=== PATIENT | female | born 1955 | race African-American/Black ===

== ENCOUNTER 2019-04-07 19:56 | Inpatient (IN) | payer OTHER ==
[~2019-04-07] VITALS: Ht 175.3 cm; Wt 97.1 kg
[2019-04-07] MEDS ORDERED: KETOROLAC 60MG/2ML VIAL IM STA (22:21)
[2019-04-07] MEDS ORDERED: ASPIRIN 81MG TABLET PO ONE (22:30)
[2019-04-08] MEDS ORDERED: MORPHINE SULFATE 4 MG/ML CPJ (NOT FOR IM USE) IV NR
[2019-04-08 00:13] LABS: BASOPHILS % 1.2 % (0.0-2.0); EOSINOPHILS % 1.2 % (0.0-5.0); HEMATOCRIT. 35.7 % (36.0-48.0); HEMOGLOBIN. 12.2 g/dL (12.0-16.0); MEAN CORPUSCULAR HEMOGLOBIN 32.4 pg (28.0-32.0); MEAN CORPUSCULAR VOLUME 95.1 fL (81.0-99.0); MEAN PLATELET VOLUME 9.2 fl (7.4-10.4); MONOCYTES % 7.4 % (2.0-8.0); NEUTROPHILS % 52.2 % (40.0-76.0); PLATELET 163 x1000/uL (130-400); RED BLOOD CELL COUNT 3.76 mill/uL (4.2-5.4); RED CELL DISTRIBUTION WIDTH 13.6 % (11.6-14.6)
[2019-04-08 00:18] LABS: CHLORIDE 102 mEq/L (98-107)
[2019-04-08 00:21] LABS: INR 0.9; PARTIAL THROMBOPLASTIN TIME 23.2 sec (23.4-31.0); PROTHROMBIN TIME 9.7 sec (9.6-11.0)
[2019-04-08 00:29] LABS: CREATINE KINASE 70 IU/L (26-192)
[2019-04-08] MEDS ORDERED: HEPARIN 5000 UNITS/ML VIAL IV SCH (01:15)
[2019-04-08] MEDS ORDERED: HEPARIN 25,000 UNITS PREMIX 500 ML IV PRN (01:15)
[2019-04-08] MEDS ORDERED: IOHEXOL-350 100 ML BOTTLE ONE (02:32)
[2019-04-08 03:23] VITALS: BP 126/71
[2019-04-08] MEDS ORDERED: METF-815 PO (03:31)
[2019-04-08] MEDS ORDERED: ATOR20TA PO (03:35)
[2019-04-08 04:00] VITALS: BP 133/77
[2019-04-08] MEDS ORDERED: ONDANSETRON HCL 4MG/2ML INJ IV PRN (04:30)
[2019-04-08] MEDS ORDERED: CLONIDINE 0.1MG TABLET PO PRN (04:30)
[2019-04-08] MEDS ORDERED: HEPARIN 25,000 UNITS PREMIX 500 ML IV SCH ×2 (04:30→05:15)
[2019-04-08] MEDS ORDERED: DEXTROSE 50% WATER 50ML SYRINGE IV PRN (04:30)
[2019-04-08] MEDS ORDERED: HEPARIN BOLUS PRN aPTT 37-44 IV (05:15)
[2019-04-08] MEDS ORDERED: HEPARIN BOLUS PRN aPTT <36 IV (05:15)
[2019-04-08] MEDS ORDERED: HEPARIN 80 UNITS/KG BOLUS IV SCH (05:15)
[2019-04-08] MEDS: BLOOD SUGAR DIAGNOSTIC STRIP TEST SCH ×4 (05:22→21:00)
[2019-04-08] MEDS: DEXT 5%/0.45% NACL KCL 20MEQ/L 1,000 ML IV SCH (05:32)
[2019-04-08 08:00] VITALS: BP 122/62
[2019-04-08] MEDS: INSULIN LISPRO 100 UNITS/ML SUBCUT SCH ×3 (08:10→21:10)
[2019-04-08 09:51] LABS: HEMATOCRIT 35.2 % (36.0-48.0); HEMOGLOBIN 11.9 g/dL (12.0-16.0); MEAN CORPUSCULAR HEMOGLOBIN 32.3 pg (28.0-32.0); MEAN CORPUSCULAR VOLUME 95.4 fL (81.0-99.0); PLATELET 164 x1000/uL (130-400); RED BLOOD CELL COUNT 3.69 mill/uL (4.2-5.4); RED CELL DISTRIBUTION WIDTH 13.3 % (11.6-14.6)
[2019-04-08 10:08] LABS: CHLORIDE 105 mEq/L (98-107)
[2019-04-08] MEDS ORDERED: KCL 20MEQ/100ML PREMIX 100 ML IV NR (12:00)
[2019-04-08 12:51] VITALS: BP 110/63
[2019-04-08 16:00] VITALS: BP 114/60
[2019-04-08] MEDS ORDERED: ENOXAPARIN 30MG/0.3ML SYR SUBCUT SCH (18:00)
[2019-04-08] MEDS: ASPIRIN 81MG EC TABLET PO SCH (18:02)
[2019-04-08] MEDS: ENOXAPARIN 100MG/ML SYR SUBCUT SCH ×2 (18:03→20:55)
[2019-04-08 20:00] VITALS: BP 111/58
[2019-04-09] VITALS: BP 119/61
[2019-04-09 04:00] VITALS: BP_SYST 115; BP_SYST 127; BP_DIAS 64; BP_DIAS 65
[2019-04-09] MEDS: BLOOD SUGAR DIAGNOSTIC STRIP TEST SCH ×4 (07:40→20:45)
[2019-04-09 08:00] VITALS: BP 109/74
[2019-04-09] MEDS: ENOXAPARIN 100MG/ML SYR SUBCUT SCH ×2 (09:05→20:44)
[2019-04-09] MEDS: ASPIRIN 81MG EC TABLET PO SCH (09:05)
[2019-04-09] MEDS: INSULIN LISPRO 100 UNITS/ML SUBCUT SCH ×4 (09:07→20:58)
[2019-04-09] MEDS: DEXT 5%/0.45% NACL KCL 20MEQ/L 1,000 ML IV SCH ×2 (09:41→23:46)
[2019-04-09 12:00] VITALS: BP 117/69
[2019-04-09 16:00] VITALS: BP 108/51
[2019-04-09 16:54] LABS: BASOPHILS % 0.8 % (0.0-2.0); EOSINOPHILS % 1.4 % (0.0-5.0); HEMATOCRIT. 35.4 % (36.0-48.0); LYMPHOCYTES % 39.2 % (20.0-50.0); MEAN CORPUSCULAR HEMOGLOBIN 32.6 pg (28.0-32.0); MEAN CORPUSCULAR VOLUME 95.8 fL (81.0-99.0); MEAN PLATELET VOLUME 9.7 fl (7.4-10.4); MONOCYTES % 8.9 % (2.0-8.0); NEUTROPHILS % 49.7 % (40.0-76.0); PLATELET 171 x1000/uL (130-400); RED CELL DISTRIBUTION WIDTH 13.9 % (11.6-14.6)
[2019-04-09 16:56] LABS: CHLORIDE 112 mEq/L (98-107)
[2019-04-09 17:05] LABS: CREATINE KINASE 47 IU/L (26-192)
[2019-04-09 17:07] LABS: CREATINE KINASE MB FRACTION < 1.0 ng/mL (0.5-3.6)
[2019-04-09 20:00] VITALS: BP 120/65
[2019-04-10] VITALS: BP 117/56
[2019-04-10 04:00] VITALS: BP 104/57
[2019-04-10] MEDS: BLOOD SUGAR DIAGNOSTIC STRIP TEST SCH ×4 (07:40→21:00)
[2019-04-10 08:00] VITALS: BP 121/59
[2019-04-10 08:21] LABS: BASOPHILS % 0.9 % (0.0-2.0); EOSINOPHILS % 1.5 % (0.0-5.0); HEMATOCRIT. 34.9 % (36.0-48.0); HEMOGLOBIN. 11.6 g/dL (12.0-16.0); LYMPHOCYTES % 43.2 % (20.0-50.0); MEAN CORPUSCULAR HEMOGLOBIN 32.1 pg (28.0-32.0); MEAN CORPUSCULAR VOLUME 96.9 fL (81.0-99.0); MEAN PLATELET VOLUME 10.3 fl (7.4-10.4); MONOCYTES % 8.1 % (2.0-8.0); NEUTROPHILS % 46.3 % (40.0-76.0); PLATELET 170 x1000/uL (130-400); RED CELL DISTRIBUTION WIDTH 13.4 % (11.6-14.6)
[2019-04-10 08:29] LABS: CHLORIDE 113 mEq/L (98-107)
[2019-04-10] MEDS: ASPIRIN 81MG EC TABLET PO SCH (08:51)
[2019-04-10] MEDS: ENOXAPARIN 100MG/ML SYR SUBCUT SCH ×2 (08:52→21:00)
[2019-04-10] MEDS: INSULIN LISPRO 100 UNITS/ML SUBCUT SCH ×4 (08:57→21:00)
[2019-04-10 12:00] VITALS: BP 118/60
[2019-04-10] MEDS ORDERED: MAGNESIUM 1 G PREMIX 100 ML IV NR (13:00)
[2019-04-10] MEDS: DEXT 5%/0.45% NACL KCL 20MEQ/L 1,000 ML IV SCH (13:55)
[2019-04-10 16:00] VITALS: BP 116/61
[2019-04-10 20:00] VITALS: BP_SYST 118; BP_DIAS 65; BP_DIAS 67
[2019-04-11] VITALS (12 sets, daily range): BP systolic 126–155; BP diastolic 61–86
[2019-04-11] MEDS: DEXT 5%/0.45% NACL KCL 20MEQ/L 1,000 ML IV SCH (01:17)
[2019-04-11 07:14] LABS: EOSINOPHILS % 1.6 % (0.0-5.0); HEMATOCRIT. 34.2 % (36.0-48.0); HEMOGLOBIN. 11.3 g/dL (12.0-16.0); MEAN CORPUSCULAR HEMOGLOBIN 32.4 pg (28.0-32.0); MEAN CORPUSCULAR VOLUME 97.6 fL (81.0-99.0); MEAN PLATELET VOLUME 9.6 fl (7.4-10.4); MONOCYTES % 8.2 % (2.0-8.0); NEUTROPHILS % 51.2 % (40.0-76.0); PLATELET 158 x1000/uL (130-400); RED CELL DISTRIBUTION WIDTH 13.8 % (11.6-14.6)
[2019-04-11 07:26] LABS: CHLORIDE 113 mEq/L (98-107)
[2019-04-11] MEDS: BLOOD SUGAR DIAGNOSTIC STRIP TEST SCH ×4 (07:40→20:51)
[2019-04-11] MEDS: ASPIRIN 81MG EC TABLET PO SCH (08:51)
[2019-04-11] MEDS: INSULIN LISPRO 100 UNITS/ML SUBCUT SCH ×4 (08:54→20:51)
[2019-04-11] MEDS ORDERED: FENTANYL CITRATE/PF 50MCG/ML 2ML VIAL ONE (12:35)
[2019-04-11] MEDS ORDERED: MIDAZOLAM HCL 2 MG/2 ML VIAL ONE ×2 (12:35→13:55)
[2019-04-11] MEDS ORDERED: ASPIRIN/SOD BICARB/CITRIC ACID 324MG TAB EFF ONE (12:36)
[2019-04-11] MEDS ORDERED: LIDOCAINE HCL 1% 20ML VIAL (Pyxis) INJ ONE (12:36)
[2019-04-11] MEDS ORDERED: IODIXANOL 320MG/ML 100 ML BOTTLE IV ONE (12:36)
[2019-04-11] MEDS ORDERED: IOHEXOL-300 100 ML BOTTLE ONE (13:56)
[2019-04-11] MEDS ORDERED: CLOPIDOGREL 75MG TABLET ONE (14:49)
[2019-04-11] MEDS: ASPIRIN 325MG TABLET PO SCH (15:00)
[2019-04-11] MEDS ORDERED: MORPHINE SULFATE 4 MG/ML CPJ (NOT FOR IM USE) IV PRN (15:00)
[2019-04-11] MEDS ORDERED: HEPARIN SODIUM 1,000 UNIT/1ML VIAL IV ONE (15:00)
[2019-04-11] MEDS ORDERED: ATROPINE SULFATE 1MG/10ML SYR IV PRN (15:00)
[2019-04-11] MEDS ORDERED: CLOPIDOGREL 75MG TABLET PO SCH (15:00)
[2019-04-11] MEDS ORDERED: SODIUM CHLORIDE 0.45% 1,000 ML IV ONE (15:00)
[2019-04-11] MEDS ORDERED: ACETAMINOPHEN 325MG TABLET PO PRN (15:00)
[2019-04-11] MEDS ORDERED: ONDANSETRON HCL 4MG/2ML INJ IV PRN (15:00)
[2019-04-11] MEDS: MORPHINE SULFATE 2 MG/ML CPJ (NOT FOR IM USE) IV PRN (21:18)
[2019-04-12] VITALS (10 sets, daily range): BP systolic 110–141; BP diastolic 57–90
[2019-04-12] MEDS: MORPHINE SULFATE 2 MG/ML CPJ (NOT FOR IM USE) IV PRN (02:13)
[2019-04-12] MEDS: BLOOD SUGAR DIAGNOSTIC STRIP TEST SCH ×3 (05:54→16:50)
[2019-04-12 07:10] LABS: BASOPHILS % 0.6 % (0.0-2.0); HEMATOCRIT. 35.1 % (36.0-48.0); HEMOGLOBIN. 11.9 g/dL (12.0-16.0); LYMPHOCYTES % 12.5 % (20.0-50.0); MEAN CORPUSCULAR HEMOGLOBIN 32.5 pg (28.0-32.0); MEAN CORPUSCULAR VOLUME 96.2 fL (81.0-99.0); MEAN PLATELET VOLUME 9.5 fl (7.4-10.4); MONOCYTES % 6.7 % (2.0-8.0); NEUTROPHILS % 79.2 % (40.0-76.0); PLATELET 178 x1000/uL (130-400); RED BLOOD CELL COUNT 3.65 mill/uL (4.2-5.4); RED CELL DISTRIBUTION WIDTH 13.7 % (11.6-14.6)
[2019-04-12 07:47] LABS: CHLORIDE 114 mEq/L (98-107)
[2019-04-12] MEDS: INSULIN LISPRO 100 UNITS/ML SUBCUT SCH ×3 (07:48→17:26)
[2019-04-12] MEDS: ASPIRIN 325MG TABLET PO SCH (07:49)
[2019-04-12] MEDS ORDERED: CLOPIDOGREL 75MG TABLET PO SCH (09:00)
== END 2019-04-12 18:43 | disposition home or self-care (01) | DRG 253 ==
LOC: ER 19:56 → 7WST 04-08 00:31 → ENRESERV 04-08 00:56 → 3WST 04-11 14:30
PROVIDERS: ADMIT Internal Medicine; ATTEND Internal Medicine
PROC: 047D3D6 (ICD-10-PCS; principal; 2019-04-08)
PROC: 047C3D6 (ICD-10-PCS; 2019-04-08)
PROC: B41G1ZZ Fluoroscopy of Left Lower Extremity Arteries using Low Osmolar Contrast (ICD-10-PCS; 2019-04-08)
DX: E11.51 Type 2 diabetes mellitus with diabetic peripheral angiopathy without gangrene (principal); I70.92 Chronic total occlusion of artery of the extremities; I74.5 Embolism and thrombosis of iliac artery; I10 Essential (primary) hypertension; E78.5 Hyperlipidemia, unspecified; E78.00 Pure hypercholesterolemia, unspecified; E87.6 Hypokalemia; F17.200 Nicotine dependence, unspecified, uncomplicated; I70.8 Atherosclerosis of other arteries; I99.8 Other disorder of circulatory system
CPT/HCPCS: 36415; 37221; 37223; 73706; 75630; 80048; 82550; 82553; 82962; 83735; 83880; 84484; 85027; 85347; 93005; 93306; 93922; 93971; 96372; 99291; C1725; C1726; C1769; C1876; C1887; C1893; C1894; J1644; J1650; J1815; J1885; J2250; J2270; J3010; J3475; J3480; J3490; Q9967